=== PATIENT | male | born 1945 | race Caucasian/White ===

== ENCOUNTER 2018-11-11 11:11 | Emergency (ER) | payer MEDICARE ==
[~2018-11-11] VITALS: Ht 180.3 cm; Wt 125.2 kg
[~2018-11-11 11:11] MED LIST: ACET325; AMIO200 PO; ASCO500 PO; ASPI325; ASPI81EC; ATOR10; Aspirin EC81 MG PO; Ativan0.5 MG; BENAML10/2; CARV6.25 PO; CEPH500 PO; CHOL10002; CITA20 PO; CLOP75 PO; CYAN1000 PO; Coq-1030 MG PO; DIAZ5 PO; DICL75ER PO; FISH1000 PO; HYDACE5 PO; HYDCHL25; HYDCHL50 PO; IBUP800 PO; LISI20 PO; META800 PO; METO100ER; METO100ER PO; METO25ER; OXYACE5T PO; RXNEOPOLHC AD; Restoril15 MG; SPIHYD; SPIR25 PO; TEMA30 PO; ZINC50 MG
[2018-11-11] MEDS ORDERED: CYCL10 PO (13:21)
== END 2018-11-11 13:31 | disposition home or self-care (01) ==
LOC: ER 11:11
DX: M25.552 Pain in left hip (principal); E78.5 Hyperlipidemia, unspecified; I25.10 Atherosclerotic heart disease of native coronary artery without angina pectoris; I25.5 Ischemic cardiomyopathy; I25.2 Old myocardial infarction; I12.9 Hypertensive chronic kidney disease with stage 1 through stage 4 chronic kidney disease, or unspecified chronic kidney disease; N18.9 Chronic kidney disease, unspecified; Z88.8 Allergy status to other drugs, medicaments and biological substances; Z91.013 Allergy to seafood; Z79.82 Long term (current) use of aspirin; Z79.02 Long term (current) use of antithrombotics/antiplatelets; Z79.899 Other long term (current) drug therapy
CPT/HCPCS: 73502; 99283-25

== ENCOUNTER 2018-12-07 14:51 | Inpatient (IN) | payer MEDICARE ==
[~2018-12-07] VITALS: Ht 180.3 cm; Wt 118.3 kg
[~2018-12-07 14:51] MED LIST changes: +CYCL10 PO
[2018-12-07 16:01] LABS: BASOPHILS ABSOLUTE AUTO 0.07 K/mm3 (0.00-0.23); BASOPHILS PERCENT AUTO 1 % (0-2); EOSINOPHILS ABSOLUTE AUTO 0.14 K/mm3 (0.00-0.68); EOSINOPHILS PERCENT AUTO 1 % (0-6); Hematocrit 42.6 % (37.0-53.0); Hemoglobin 14.3 g/dL (13.5-17.5); IMMATURE GRAN ABSOLUTE AUTO 0.08 K/mm3 (0.00-0.10); IMMATURE GRAN PERCENT AUTO 1 % (0-1); LYMPHOCYTES ABSOLUTE AUTO 0.85 K/mm3 (0.84-5.20); LYMPHOCYTES PERCENT AUTO 8 % (21-46); MONOCYTES PERCENT AUTO 6 % (4-13); Mean Corpuscular HGB 29.8 pg (26.0-34.0); Mean Corpuscular HGB Conc 33.6 g/dL (31.5-36.5); Mean Corpuscular Volume 89 fL (80-100); Mean Platelet Volume 12.6 fL (9.1-12.4); NEUTROPHILS ABSOLUTE AUTO 8.63 K/mm3 (1.96-9.15); NEUTROPHILS PERCENT AUTO 83 % (41-73); Platelet Count 260 K/mm3 (150-400); RDW Coefficient Variation 13.2 % (11.7-14.2); RDW Standard Deviation 43.5 fL (35.1-46.3); White Blood Cell Count 10.37 K/mm3 (4.00-11.30)
[2018-12-07 16:42] LABS: Albumin, Blood 4.1 g/dL (3.4-5.0); Albumin/Globulin Ratio 1.1 (0.8-1.8); Bilirubin, Total 0.2 mg/dL (0.1-1.0); Bun/Creatinine Ratio 25.6 (12.0-20.0); Calcium, Blood 9.2 mg/dL (8.5-10.1); Creatinine, Blood 5.87 mg/dL (0.60-1.20); Globulin, Blood 3.8 g/dL (2.2-4.0); Potassium, Blood 4.9 mmol/L (3.5-5.5); Total Protein, Blood 7.9 g/dL (6.4-8.2)
[2018-12-07 19:36] LABS: Source, Urine Clean Catch
[2018-12-07 19:45] LABS: Bilirubin, Urine Neg (Neg); Blood, Urine 1+ (Neg); Glucose Qualitative, Urine Neg (Neg); Ketones, Urine Neg (Neg); Leukocyte Esterase, Urine Neg (Neg); Nitrite, Urine Neg (Neg); Protein, Urine 1+ (Neg); Specific Gravity, Urine 1.015 (1.003-1.022); Urobilinogen, Urine NORM (Normal)
[2018-12-07 19:57] LABS: Appearance, Urine Clear (Clear); Color, Urine Yellow (P-Yellow)
[2018-12-07 19:59] LABS: Bacteria Few /hpf; Hyaline Casts 0-2 /lpf (0-2); Squamous Epithelial Cells Few /hpf (Few); WBC Cast 0-2 /lpf (0)
--- NOTE | 2018-12-08 03:52 | NUR ---
PT ADMITTED FOR ACUTE RENAL FAILURE AND PAIN IN HIS BACK/LEFT LEG. HE IS ON A CARDIAC HEART HEALTHY DIET AND TAKES HIS MEDICATIONS WHOLE PER REPORT. HE HAS A 20G IV IN THE RIGHT AC. HE IS A ONE PERSON ASSIST DUE TO THE WEAKNESS AND PAIN IN HIS LEFT LEG PER REPORT. HE IS ALERT AND ORIENTED X4 AND HAS APPEARED TO REST COMFORTABLY THROUGHOUT THE NIGHT. AROUND 54 WE RETURNED A PHONE CALL TO EDMOND WHO REPORTED BEING THE DAUGHTER OF THE PT HOWEVER SHE DID NOT ANSWER THE PHONE AND THE VOICEMAIL BOX WAS FULL.
[2018-12-08 05:46] LABS: Bun/Creatinine Ratio 33.5 (12.0-20.0); Calcium, Blood 8.8 mg/dL (8.5-10.1); Creatinine, Blood 4.09 mg/dL (0.60-1.20); Phosphorus, Blood 5.9 mg/dL (2.5-4.9); Potassium, Blood 4.4 mmol/L (3.5-5.5)
--- NOTE | 2018-12-08 12:40 | NUR ---
FLUIDS NOT HUNG DURING NOC SHIFT. DAY SHIFT RN NOTICED THESE FLUIDS ON EMAR. HUNG FLUIDS AT 1230. NOTIFIED DR. BORJAS.
[2018-12-08 16:06] LABS: Bilirubin, Urine Neg (Neg); Blood, Urine Neg (Neg); Glucose Qualitative, Urine Neg (Neg); Ketones, Urine Neg (Neg); Leukocyte Esterase, Urine Neg (Neg); Nitrite, Urine Neg (Neg); Protein, Urine Neg (Neg); Specific Gravity, Urine 1.015 (1.003-1.022); Urobilinogen, Urine NORM (Normal)
[2018-12-08 16:27] LABS: Appearance, Urine Clear (Clear); Color, Urine Yellow (P-Yellow)
--- NOTE | 2018-12-08 17:21 | NUR ---
SHIFT SUMMARY PATIENT HAD A GOOD DAY. PLEASANT AND HAS FUN SENSE OF HUMOR WITH STAFF. IV FLUIDS CONTINUE. VITALS HAVE BEEN WNL. THERE HAVE BEEN NO PROBLEMS OR CONCERNS DURING THIS SHIFT. WILL CONTINUE TO MONITOR AND PROVIDE CARE TO PATIENT.
--- NOTE | 2018-12-09 04:40 | NUR ---
SHIFT SUMMARY PT HAS RESTED FOR MOST OF THE NIGHT. IVF INFUSING ORDERED. PT HAS BEEN VOIDING WITHOUT DIFFCULTY. DENIES PAIN, INDEPENDENT IN THE ROOM. VITALS STABLE. MELATONIN GIVEN FOR SLEEP WITH GOOD AFFECT. PT READY FOR DC. NO ACUTE CHANGES. ASSESSMENT UNCHANGED. WILL CONTINUE TO MONITOR AND REPORT TO ONCOMING RN.
[2018-12-09 04:58] LABS: Albumin, Blood 3.8 g/dL (3.4-5.0); Anion Gap 8 mmol/L (6-16); Blood Urea Nitrogen 114 mg/dL (8-24); Bun/Creatinine Ratio 47.1 (12.0-20.0); CO2, Blood 18 mmol/L (21-32); CPK Creatine Kinase 46 U/L (39-308); Calcium, Blood 8.6 mg/dL (8.5-10.1); Chloride, Blood 110 mmol/L (98-108); Creatinine, Blood 2.42 mg/dL (0.60-1.20); Glomerular Filtration Rate 28 (60-); Glucose, Blood 123 mg/dL (70-99); Phosphorus, Blood 3.8 mg/dL (2.5-4.9); Potassium, Blood 4.5 mmol/L (3.5-5.5); Sodium, Blood 136 mmol/L (136-145)
--- NOTE | 2018-12-09 07:40 | NUR ---
ASSUMED CARE OF PT- BEDSIDE REPORT COMPLETED WITH NIGHT RN HILARY. PT SLEEPING AT THE TIME OF SHIFT CHANGE AND DID NOT WAKE TO STAFF PRESENCE. PT ADMITTED FOR ARF WITH NO Hx OF IT PER REPORT. SLOW FLUID RESUSSITATION STARTED AND PT REANL FUNCTION IS IMPROVING. PT ALERT ORIENTED AND INDEPENDENT IN THE ROOM.
[2018-12-09] MEDS ORDERED: CYCL10 PO (11:33)
[2018-12-09] MEDS ORDERED: ACET325 PO (11:33)
[2018-12-09] MEDS ORDERED: TRAM50 PO (11:34)
--- NOTE | 2018-12-09 15:01 | NUR ---
DISCHARGE NOTE- PT DISCHARGED HOME, VERBAL AND WRITTEN DISCHARGE INSTRUCTIONS GIVEN TO PT AND NO FURTHER QUESTIONS WERE ASKED. SPOUSE ARRIVED TO TAKE THE PT HOME AND VERBAL AND WRITTEN DISCHARGE INSTRUCTIONS WERE GIVEN AGAIN. PT ALERT AND ORIENTED, WAS ESCORTED VIA W/C BY THE ASSESSMENT DIRECTOR TO THE [place] [facility]TR[facility], CONTACT INFO WAS PROVIDED SHOULD QUESTIONS ARRISE.
== END 2018-12-09 12:45 | disposition home or self-care (01) | DRG 683 ==
LOC: ER 14:51 → SURS 20:01 → MEDS 20:01 → ENPENDDIS 12-09 09:56 → MEDS 12-09 12:45
PROVIDERS: Emergency Medicine; Internal Medicine; ADMIT Hospitalist
DX: N17.9 Acute kidney failure, unspecified (principal); I50.22 Chronic systolic (congestive) heart failure; I13.0 Hypertensive heart and chronic kidney disease with heart failure and stage 1 through stage 4 chronic kidney disease, or unspecified chronic kidney disease; E87.1 Hypo-osmolality and hyponatremia; I25.10 Atherosclerotic heart disease of native coronary artery without angina pectoris; M51.36 Other intervertebral disc degeneration, lumbar region; E78.5 Hyperlipidemia, unspecified; I25.5 Ischemic cardiomyopathy; E83.39 Other disorders of phosphorus metabolism; Z86.74 Personal history of sudden cardiac arrest; Z95.810 Presence of automatic (implantable) cardiac defibrillator; Z95.1 Presence of aortocoronary bypass graft; Z95.5 Presence of coronary angioplasty implant and graft; Z88.8 Allergy status to other drugs, medicaments and biological substances; Z91.013 Allergy to seafood; Z79.02 Long term (current) use of antithrombotics/antiplatelets; Z79.82 Long term (current) use of aspirin; Z79.899 Other long term (current) drug therapy; N18.3 Chronic kidney disease, stage 3 (moderate)
CPT/HCPCS: 36415; 74176; 80048; 80053; 80069; 81001; 81003; 82550; 82570; 83735; 83935; 83970; 84100; 84300; 84540; 85025; 87081; 87086; 93005; 93010; 96361; 96374; 97110; 97162; 97530; 99285-25; A9270; J1650; J3010; J7030

== ENCOUNTER → 2018-12-26 | Outpatient (CLI) | payer MEDICARE ==
[~2018-12-26] MED LIST changes: +ACET325 PO; +TRAM50 PO
[2018-12-26 12:59] LABS: Source, Urine Clean Catch
[2018-12-26 14:03] LABS: Bilirubin, Urine Neg (Neg); Blood, Urine 1+ (Neg); Glucose Qualitative, Urine Neg (Neg); Ketones, Urine Neg (Neg); Leukocyte Esterase, Urine Neg (Neg); Nitrite, Urine Neg (Neg); Protein, Urine 1+ (Neg); Specific Gravity, Urine 1.025 (1.003-1.022); Urobilinogen, Urine NORM (Normal)
[2018-12-26 14:11] LABS: Appearance, Urine Clear (Clear); Color, Urine Yellow (P-Yellow)
[2018-12-26 14:13] LABS: Bacteria Few /hpf; Squamous Epithelial Cells Few /hpf (Few)
[2018-12-26 14:25] LABS: Albumin, Blood 3.6 g/dL (3.4-5.0); Anion Gap 8 mmol/L (6-16); Blood Urea Nitrogen 19 mg/dL (8-24); CO2, Blood 22 mmol/L (21-32); Calcium, Blood 9.1 mg/dL (8.5-10.1); Chloride, Blood 109 mmol/L (98-108); Creatinine, Blood 1.27 mg/dL (0.60-1.20); Glomerular Filtration Rate 59 (60-); Glucose, Blood 124 mg/dL (70-99); Phosphorus, Blood 1.9 mg/dL (2.5-4.9); Potassium, Blood 4.3 mmol/L (3.5-5.5); Sodium, Blood 139 mmol/L (136-145)
== END | disposition home or self-care (01) ==
LOC: LAB SHORT 12:57 → OLS 12:57
PROVIDERS: Internal Medicine
DX: E55.9 Vitamin D deficiency, unspecified (principal); N17.9 Acute kidney failure, unspecified
CPT/HCPCS: 36415; 80069; 81001; 82306; 83970

== ENCOUNTER 2019-08-10 17:53 | Emergency (ER) | payer MEDICARE ==
[~2019-08-10] VITALS: Ht 180.3 cm; Wt 122.9 kg
[~2019-08-10 17:53] MED LIST changes: -GABA300 PO
[2019-08-10 19:57] LABS: BASOPHILS ABSOLUTE AUTO 0.06 K/mm3 (0.00-0.23); BASOPHILS PERCENT AUTO 1 % (0-2); EOSINOPHILS PERCENT AUTO 4 % (0-6); Hematocrit 50.3 % (37.0-53.0); Hemoglobin 16.6 g/dL (13.5-17.5); IMMATURE GRAN ABSOLUTE AUTO 0.02 K/mm3 (0.00-0.10); IMMATURE GRAN PERCENT AUTO 0 % (0-1); LYMPHOCYTES ABSOLUTE AUTO 1.22 K/mm3 (0.84-5.20); LYMPHOCYTES PERCENT AUTO 22 % (21-46); MONOCYTES ABSOLUTE AUTO 0.56 K/mm3 (0.16-1.47); MONOCYTES PERCENT AUTO 10 % (4-13); Mean Corpuscular HGB 28.8 pg (26.0-34.0); Mean Corpuscular Volume 87 fL (80-100); Mean Platelet Volume 11.6 fL (9.1-12.4); NEUTROPHILS ABSOLUTE AUTO 3.53 K/mm3 (1.96-9.15); NEUTROPHILS PERCENT AUTO 63 % (41-73); Platelet Count 213 K/mm3 (150-400); RDW Coefficient Variation 15.1 % (11.7-14.2); RDW Standard Deviation 47.8 fL (35.1-46.3); Red Blood Cell Count 5.76 M/mm3 (4.30-5.90); White Blood Cell Count 5.59 K/mm3 (4.00-11.30)
[2019-08-10 20:18] LABS: Alanine Aminotransfer (ALT/SGP 29 U/L (12-78); Albumin/Globulin Ratio 1.1 (0.8-1.8); Alk Phos 70 U/L (50-136); Anion Gap 6 mmol/L (6-16); Aspartate Aminotrans (AST/SGOT 15 U/L (12-37); Bilirubin, Total 0.5 mg/dL (0.1-1.0); Blood Urea Nitrogen 16 mg/dL (8-24); Bun/Creatinine Ratio 16.6 (12.0-20.0); CO2, Blood 26 mmol/L (21-32); Calcium, Blood 9.3 mg/dL (8.5-10.1); Chloride, Blood 106 mmol/L (98-108); Creatinine, Blood 0.96 mg/dL (0.60-1.20); Globulin, Blood 3.8 g/dL (2.2-4.0); Glomerular Filtration Rate >60 (60-); Glucose, Blood 126 mg/dL (70-99); Potassium, Blood 4.3 mmol/L (3.5-5.5); Sodium, Blood 138 mmol/L (136-145); Total Protein, Blood 7.8 g/dL (6.4-8.2)
[2019-08-10] MEDS ORDERED: GABA300 PO (21:08)
== END 2019-08-10 21:15 | disposition home or self-care (01) ==
LOC: ER 17:53
PROVIDERS: Emergency Medicine
DX: B02.29 Other postherpetic nervous system involvement (principal); I25.10 Atherosclerotic heart disease of native coronary artery without angina pectoris; I25.2 Old myocardial infarction; I12.9 Hypertensive chronic kidney disease with stage 1 through stage 4 chronic kidney disease, or unspecified chronic kidney disease; N18.9 Chronic kidney disease, unspecified; E78.5 Hyperlipidemia, unspecified; Z91.013 Allergy to seafood; Z91.048 Other nonmedicinal substance allergy status; Z79.899 Other long term (current) drug therapy; Z79.02 Long term (current) use of antithrombotics/antiplatelets; Z79.82 Long term (current) use of aspirin
CPT/HCPCS: 36415; 80053; 85025; 96374; 96375; 99283-25; J2270; J2405; J3010

== ENCOUNTER → 2019-08-10 | Outpatient (CLI) | payer MEDICARE ==
[~2019-08-10] MED LIST changes: +GABA300 PO
[2019-08-10 16:51] LABS: Source, Urine Clean Catch
[2019-08-10 17:31] LABS: Bilirubin, Urine Neg (Neg); Blood, Urine 1+ (Neg); Glucose Qualitative, Urine Neg (Neg); Ketones, Urine Neg (Neg); Leukocyte Esterase, Urine Neg (Neg); Nitrite, Urine Neg (Neg); Protein, Urine 1+ (Neg); Specific Gravity, Urine 1.025 (1.003-1.022); Urobilinogen, Urine NORM (Normal)
[2019-08-10 17:40] LABS: Appearance, Urine Clear (Clear); Color, Urine Amber (P-Yellow)
[2019-08-10 17:41] LABS: Bacteria Few /hpf; Red Blood Cells, Urine 0-2 /hpf (0-2); Squamous Epithelial Cells Few /hpf (Few); White Blood Cells, Urine 0-2 /hpf (0-5)
== END | disposition home or self-care (01) ==
LOC: LAB SHORT 16:48 → OLS 16:48
PROVIDERS: Internal Medicine
DX: R35.0 Frequency of micturition (principal)
CPT/HCPCS: 81001

== ENCOUNTER 2020-08-22 10:44 | Day surgery (SDC) | payer MEDICARE ==
[~2020-08-22] VITALS: Ht 180.3 cm; Wt 128.8 kg
[~2020-08-22 10:44] MED LIST changes: +CLEM1.34 PO; +GABA300 PO
--- NOTE | 2020-08-22 11:44 | NUR ---
PATIENT READY FOR PACER/ICD CHANGED OUT. [employer] REP AT THE BEDSIDE EARLIER AND TESTED DEVICE. READOUT GIVEN TO DR. GARCIA. ADMISSION ASSESSMENT COMPLETE ADN PIV STARTED TO THE LEFT AC.
--- NOTE | 2020-08-22 13:19 | NUR ---
PAIENT UP OOB TO THE CHAIR. BACK IS SORE. PATEINT CALLED AND UPDATED ON THE DELAY OF START OF CASE.
--- NOTE | 2020-08-22 13:24 | NUR ---
SALES OPERATIONS SPECIALIST AT THE BEDSIDE AND SPOKE WITH THE PATIENT. OFFERED TO HAVE PATIENT WAIT FOR PROCEDURE START TIME LATER TODAY OR COME BACK TOMORROW MORNING AND BE FIRST CASE. PATIENT IS DECIDING AFTER HE TALKS WITH THIS .
--- NOTE | 2020-08-22 16:43 | NUR ---
TO RECOVERY ROOM VIA RECLINER. PT AWAKE AND ALERT. DRESSING LEFT UPPE SHOULDER DRY AND INTACT. PT EATING LUNCH.INSTRUCTED TO KEEP SITE CLEAN AND DRY. DEVICE CARD GIVEN TO PATIENT.PRESCRIPTION CALLED INTO [facility].
--- NOTE | 2020-08-22 16:55 | NUR ---
DISCHARGED HOME VIA WHEELCHAIR. DRIVING.
[2020-08-22] MEDS ORDERED: CEPH500 PO (16:56)
== END 2020-08-22 17:00 | disposition home or self-care (01) ==
LOC: MHTC 10:44
DX: Z45.02 Encounter for adjustment and management of automatic implantable cardiac defibrillator (principal); I25.810 Atherosclerosis of coronary artery bypass graft(s) without angina pectoris; I13.10 Hypertensive heart and chronic kidney disease without heart failure, with stage 1 through stage 4 chronic kidney disease, or unspecified chronic kidney disease; E78.5 Hyperlipidemia, unspecified; N18.9 Chronic kidney disease, unspecified; I25.5 Ischemic cardiomyopathy; E66.01 Morbid (severe) obesity due to excess calories; Z68.39 Body mass index [BMI] 39.0-39.9, adult; Z95.1 Presence of aortocoronary bypass graft; Z88.8 Allergy status to other drugs, medicaments and biological substances; Z91.013 Allergy to seafood
CPT/HCPCS: 33264; 99152; 99153; C1781; C1882; J0690; J1644; J2250; J3010; J7030; J7040

== ENCOUNTER 2025-02-27 08:03 | Day surgery (SDC) | payer MEDICARE ==
[~2025-02-27] VITALS: Ht 180.3 cm; Wt 122.7 kg
[~2025-02-27 08:03] MED LIST changes: +Balanced Salt Epinephrine Irrigation Solution 500 mL IR SCH; +Moxifloxacin HCL 0.5 MG/0.1 ML 0.4MLSYR LEFTEYE SCH; +NS 500 ML IV ONE; +PHENYLEPHRINE\\TROPICAMIDE\\TETRACAINE OPHTHALMIC DILATING SOLN LEFTEYE PRN; +Povidone-Iodine 450 DROP/30 ML Solution LEFTEYE SCH; +Povidone-Iodine 450 DROP/30 ML Solution ONE; +Tetracaine HCl/Pf 0.5% Opth Soln 4 ml ONE
[2025-02-27] MEDS ORDERED: CYCL10 PO (08:39)
[2025-02-27] MEDS ORDERED: PANTOPRAZOLE SO40 M2 PO (08:39)
[2025-02-27] MEDS ORDERED: MELO7.5 PO (08:40)
[2025-02-27] MEDS ORDERED: ELIQUIS5 M2 PO (08:40)
[2025-02-27] MEDS ORDERED: JARDIANCE10 MG PO (08:40)
[2025-02-27] MEDS ORDERED: [UNRECOGNIZED DRUG - CODE] PO (08:41)
[2025-02-27] MEDS ORDERED: ENTRESTO 24 MG1 EACH PO (08:41)
[2025-02-27] MEDS ORDERED: NITR.4SL SL (08:41)
[2025-02-27] MEDS ORDERED: HYDROCODONE-AC1 EA19 PO (08:42)
[2025-02-27] MEDS ORDERED: NS 500 ML IV ONE (08:47)
--- NOTE | 2025-02-27 08:47 | NUR ---
02/27/25 0847 Alex Blackwell CALL LIGHT WITHIN REACH. EYE DROPS IN AROUND 0839.
[2025-02-27] MEDS ORDERED: Midazolam HCl 1MG / ML 2ML Vial ONE (08:48)
[2025-02-27] MEDS ORDERED: FentaNYL Citrate 50 MCG/ML 2 ML Injection ONE (08:48)
[2025-02-27 09:27] VITALS: BP 92/57
--- NOTE | 2025-02-27 09:51 | NUR ---
02/27/25 0951 ENRIQUE CROCKETT DTR WAS BROUGHT BACK FOR DISCHARGE INSTRUCTIONS. ALL QUESTIONS ANSWERED
== END 2025-02-27 09:48 | disposition home or self-care (01) ==
LOC: ORSCSDS 08:03
PROVIDERS: Student in an Organized Health Care Education/Training Program
PROC: 08RK3JZ Replacement of Left Lens with Synthetic Substitute, Percutaneous Approach (ICD-10-PCS; principal; 2025-02-27 09:30)
DX: H25.813 Combined forms of age-related cataract, bilateral (principal); I25.10 Atherosclerotic heart disease of native coronary artery without angina pectoris; E78.5 Hyperlipidemia, unspecified; I25.5 Ischemic cardiomyopathy; I12.9 Hypertensive chronic kidney disease with stage 1 through stage 4 chronic kidney disease, or unspecified chronic kidney disease; N18.9 Chronic kidney disease, unspecified; E66.9 Obesity, unspecified; Z68.37 Body mass index [BMI] 37.0-37.9, adult; Z79.01 Long term (current) use of anticoagulants; Z79.84 Long term (current) use of oral hypoglycemic drugs; Z79.899 Other long term (current) drug therapy
CPT/HCPCS: J2250; J3010; J7040; V2632